=== PATIENT | female | born 1995 | race African-American/Black ===

== ENCOUNTER 2017-01-26 22:36 | Observation (INO) | payer MEDICAID ==
[~2017-01-26] VITALS: Ht 152.4 cm; Wt 54.4 kg
[2017-01-26] MEDS ORDERED: DOXY10TA OR (23:30)
[2017-01-26] MEDS ORDERED: ACET-1304 PO (23:30)
[2017-01-26] MEDS ORDERED: FERR-7 PO (23:30)
[2017-01-26] MEDS ORDERED: PREN-96 OR (23:30)
== END 2017-01-27 00:22 | disposition home or self-care (01) | DRG 566 ==
LOC: LDRP 22:36
PROVIDERS: ADMIT Specialist; ATTEND Specialist
DX: O21.2 Late vomiting of pregnancy (principal); O26.892 Other specified pregnancy related conditions, second trimester; R63.0 Anorexia; R10.30 Lower abdominal pain, unspecified; Z3A.20 20 weeks gestation of pregnancy
CPT/HCPCS: 59025; 81002; G0378